=== PATIENT | female | born 1950 | race Caucasian/White ===

== ENCOUNTER 2016-12-30 17:03 | Inpatient (IN) | payer MEDICARE ==
[~2016-12-30] VITALS: Ht 157.5 cm; Wt 65.2 kg
[~2016-12-30 17:03] MED LIST: CHOL10003 PO; ESOM40CA PO; LACT1CAP35 PO; LATA2.5D3 EACHEYE; LEVO125T5 PO; LIOT5TAB3 PO; LORA0.5T PO
[2016-12-30 17:40] VITALS: BP 124/72
[2016-12-30] MEDS ORDERED: DOCUSATE 100 MG CAPSULE PO PRN (18:00)
[2016-12-30] MEDS ORDERED: PLEASE ENTER HEIGHT AND WEIGHT MC SCH (18:00)
[2016-12-30] MEDS ORDERED: hydrALAzine 20 MG/ML, 1ML IVPush PRN (18:00)
[2016-12-30] MEDS ORDERED: OXYcodone IR 5MG TABLET PO PRN (18:00)
[2016-12-30] MEDS ORDERED: POLYETHYLENE GLYCOL 17 GM PACKET PO PRN (18:00)
[2016-12-30] MEDS ORDERED: ONDANSETRON 2MG/ML, 2ML IVPush PRN (18:00)
[2016-12-30] MEDS ORDERED: morphine SULFATE 10 MG/ML, 1ML IVPush PRN (18:00)
[2016-12-30] MEDS ORDERED: ACETAMINOPHEN 325 MG TABLET PO PRN (18:00)
[2016-12-30] MEDS ORDERED: BISACODYL 10 MG SUPP PR PRN (18:00)
[2016-12-30] MEDS ORDERED: ENALAPRILAT 1.25 MG/ML, 2ML IVPush PRN ×2 (18:00→19:00)
[2016-12-30] MEDS ORDERED: ROSU20TA PO (18:12)
[2016-12-30] MEDS ORDERED: LEVO75TA59 PO (18:12)
[2016-12-30] MEDS ORDERED: PANT40TA5 PO (18:12)
[2016-12-30] MEDS ORDERED: OXYcodone/APAP 5/325MG TABLET PO PRN (18:30)
[2016-12-30] MEDS ORDERED: morphine SULFATE 10 MG/ML, 1ML IV PRN (18:30)
[2016-12-30] MEDS ORDERED: ONDANSETRON 2MG/ML, 2ML IV PRN (18:30)
[2016-12-30 18:54] VITALS: BP 120/74
[2016-12-30] MEDS: D5%-0.45% NACL 1,000 ML IV SCH (19:00)
[2016-12-30] MEDS ORDERED: LABETALOL 5MG/ML, 20ML IV PRN (19:00)
[2016-12-30 19:28] LABS: BASOPHILS # (AUTO) 0.01 x10^3/uL (0-0.1); BASOPHILS % (AUTO) 0 % (0-1); EOSINOPHILS % (AUTO) 0 % (1-7); LYMPHOCYTES # (AUTO) 0.58 x10^3/uL (1-3.4); LYMPHOCYTES % (AUTO) 5 % (22-44); MD NO; MEAN CORPUSCULAR HEMOGLOBIN 31.9 pg (27.0-34.8); MEAN CORPUSCULAR HGB CONC 32.8 g/dL (32.4-35.8); MEAN CORPUSCULAR VOLUME 97.3 fL (80-100); MEAN PLATELET VOLUME 7.7 fL (7.4-10.4); MONOCYTES # (AUTO) 0.32 x10^3/uL (0.2-0.8); MONOCYTES % (AUTO) 3 % (2-9); NEUTROPHILS # (AUTO) 12.08 x10^3/uL (1.8-6.8); NEUTROPHILS % (AUTO) 93 % (42-75); PLATELET COUNT 240 x10^3/uL (130-400); RED BLOOD COUNT 3.39 x10^6/uL (3.82-5.3); RED CELL DISTRIBUTION WIDTH 14.8 % (9.6-15.2)
[2016-12-30 19:53] LABS: ANION GAP 9 mmol/L (5-15); CHLORIDE 103 mmol/L (98-107); CREATININE 0.68 mg/dL (0.55-1.02)
[2016-12-30 20:02] LABS: HEMOGLOBIN A1C 5.2 % (4.2-6.3)
[2016-12-30 20:03] LABS: FREE T4 (FREE THYROXINE) 0.95 ng/dL (0.76-1.46)
[2016-12-30] MEDS: CEFAZOLIN PMX 1GM/50ML 50 ML IVPB SCH (20:19)
[2016-12-30 20:41] VITALS: BP 112/71
[2016-12-30 20:53] VITALS: BP 137/73
[2016-12-30] MEDS: FAMOTIDINE 20 MG/2 ML IVPush SCH (23:07)
[2016-12-30 23:08] VITALS: BP 127/87
[2016-12-31 01:44] VITALS: BP 136/68
[2016-12-31] MEDS ORDERED: ALBUTEROL SULFATE 2.5 MG/3 ML NPPB PRN (02:30)
[2016-12-31 02:47] VITALS: BP 121/73
[2016-12-31] MEDS: CEFAZOLIN PMX 1GM/50ML 50 ML IVPB SCH (04:24)
[2016-12-31 05:54] LABS: BASOPHILS # (AUTO) 0.06 x10^3/uL (0-0.1); BASOPHILS % (AUTO) 1 % (0-1); EOSINOPHILS % (AUTO) 0 % (1-7); LYMPHOCYTES # (AUTO) 1.01 x10^3/uL (1-3.4); LYMPHOCYTES % (AUTO) 11 % (22-44); MD NO; MEAN CORPUSCULAR HEMOGLOBIN 32.4 pg (27.0-34.8); MEAN CORPUSCULAR HGB CONC 33.3 g/dL (32.4-35.8); MEAN CORPUSCULAR VOLUME 97.4 fL (80-100); MEAN PLATELET VOLUME 7.9 fL (7.4-10.4); MONOCYTES # (AUTO) 0.67 x10^3/uL (0.2-0.8); MONOCYTES % (AUTO) 7 % (2-9); NEUTROPHILS # (AUTO) 7.75 x10^3/uL (1.8-6.8); NEUTROPHILS % (AUTO) 82 % (42-75); PLATELET COUNT 228 x10^3/uL (130-400); RED CELL DISTRIBUTION WIDTH 14.2 % (9.6-15.2)
[2016-12-31 06:14] LABS: ALBUMIN 2.7 g/dL (3.4-5.0); ANION GAP 10 mmol/L (5-15); CALCIUM 7.9 mg/dL (8.5-10.1); CHLORIDE 108 mmol/L (98-107)
[2016-12-31 06:18] LABS: ALANINE AMINOTRANSFERASE 26 U/L (12-78); ALKALINE PHOSPHATASE 44 U/L (45-117); BILIRUBIN,TOTAL 0.2 mg/dL (0.2-1.0); CHOL/HDL RATIO 1.4; CHOLESTEROL, TOTAL 127 mg/dL (140-239); CREATININE 0.68 mg/dL (0.55-1.02); HDL CHOL % 70 % (28-40); HDL CHOLESTEROL (DIRECT) 89 mg/dL (40-60); LDL CHOLESTEROL,CALCULATED 20 mg/dL (54-169); LDL/HDL RATIO 0.2 (0.5-3.0); TOTAL PROTEIN 5.4 g/dL (6.4-8.2); TRIGLYCERIDES 88 mg/dL (50-200); VLDL CHOLESTEROL 18 mg/dL (0-25)
[2016-12-31] MEDS: D5%-0.45% NACL 1,000 ML IV SCH (06:38)
[2016-12-31 07:45] VITALS: BP 117/64
[2016-12-31] MEDS: FAMOTIDINE 20 MG/2 ML IVPush SCH (08:43)
[2016-12-31] MEDS ORDERED: OXYC-302 PO (10:32)
[2016-12-31] MEDS ORDERED: CEPH-368 PO (10:32)
== END 2016-12-31 12:50 | disposition home or self-care (01) | DRG 305 ==
LOC: 5SO 17:18 → INTOOBSV 17:18 → OBSVTOIN 17:57 → DCLOUNGE 12-31 12:37
PROVIDERS: ADMIT Otolaryngology; ATTEND Otolaryngology
DX: I10 Essential (primary) hypertension (principal); E03.9 Hypothyroidism, unspecified; R04.0 Epistaxis; K21.9 Gastro-esophageal reflux disease without esophagitis; E78.5 Hyperlipidemia, unspecified; Z90.49 Acquired absence of other specified parts of digestive tract; Z90.89 Acquired absence of other organs; Z90.710 Acquired absence of both cervix and uterus; Z88.1 Allergy status to other antibiotic agents; Z91.030 Bee allergy status; Z91.041 Radiographic dye allergy status; Z88.5 Allergy status to narcotic agent; Z88.0 Allergy status to penicillin; Z91.013 Allergy to seafood; Z88.2 Allergy status to sulfonamides; Z91.048 Other nonmedicinal substance allergy status; Z79.899 Other long term (current) drug therapy; K58.9 Irritable bowel syndrome, unspecified
CPT/HCPCS: 36415; 80048; 80053; 80061; 83036; 83735; 84439; 84443; 85025; J0690; J2405; G0378; S0028